=== PATIENT | female | born 1965 | race Caucasian/White ===

== ENCOUNTER 2024-08-06 14:29 | Outpatient (CLI) | payer BC | END 2024-08-06 14:30 | disposition home or self-care (01) | LOC: SCSRAD 14:29 | PROVIDERS: ATTEND Orthopaedic Surgery | DX: M54.50 Low back pain, unspecified (principal); M47.816 Spondylosis without myelopathy or radiculopathy, lumbar region; M47.817 Spondylosis without myelopathy or radiculopathy, lumbosacral region; Z98.890 Other specified postprocedural states | CPT/HCPCS: 72100 ==

== ENCOUNTER 2024-09-13 10:58 | Inpatient (IN) | payer BC ==
[2024-09-13] MEDS ORDERED: Ketorolac Tromethamine 30 MG (1 mL) VIAL ONE (11:14)
[2024-09-13] MEDS ORDERED: Albuterol 2.5 MG (0.5 mL) NEB ONE (11:27)
[2024-09-13] MEDS ORDERED: Albuterol 2.5 MG (3 mL) NEB ONE (11:28)
[2024-09-13 11:34] LABS: Magnesium 3.2 mg/dL (1.6-2.6)
[2024-09-13 11:35] LABS: ALT (SGPT) 15 U/L (8-55); AST (SGOT) 28 U/L (5-34); Acetaminophen Less than 10 mcg/mL (Less than 10); Albumin 3.8 g/dL (3.5-5.0); Alcohol Less than 10.0 mg/dL (Less than 10); Alkaline Phosphatase 103 U/L (40-110); Anion Gap 19 mmol/L (10-20); BUN (Urea Nitrogen) 5 mg/dL (9.8-20.1); Bilirubin, Total 0.7 mg/dL (0.2-1.2); Calc. Creatinine Clearance 0 mL/min (70-130); Carbon Dioxide 23 mmol/L (22-29); Chloride 101 mmol/L (98-107); Estimated GFR 90; Globulin 3.7 g/dL (2.4-3.5); Glucose 289 mg/dL (70-105); Potassium 4.6 mmol/L (3.5-5.1); Protein, Total 7.5 g/dL (6.0-8.3); Salicylate Less than 8.0 mg/dL (Less than 8.0); Sodium 138 mmol/L (136-145)
[2024-09-13 11:40] LABS: Troponin I 0.131 ng/mL (< 0.028)
[2024-09-13 11:41] LABS: #Basophils 0.12 10x3/uL (0.0-0.2); %Basophils 0.9 % (0.0-1.0); %Eosinophils 0.4 % (0.0-10.0); %Lymphocytes 15.4 % (21.0-51.0); %Monocytes 5.1 % (0.0-10.0); Hematocrit 55.5 % (36.0-47.0); Hemoglobin 18.6 g/dL (12.0-16.0); Mean Corpuscular HGB CONC 33.5 g/dL (32.0-36.0); Mean Corpuscular Hemoglobin 32.1 pg (27.0-31.0); Mean Corpuscular Volume 95.7 fL (78.0-98.0); Mean Platelet Volume 9.6 fL (7.4-10.4); Platelet Count 348 10x3/uL (130-400); RBC Distribution Width 12.8 % (11.5-14.5)
[2024-09-13] MEDS ORDERED: Dextrose 50% Abboject 50 ML SYRINGE SLOW IVP PRN (14:04)
[2024-09-13] MEDS ORDERED: Acetaminophen 325 MG TAB PO PRN (14:04)
[2024-09-13] MEDS ORDERED: Dextrose 5% in Water 1,000 ML IV PRN (14:04)
[2024-09-13] MEDS ORDERED: Glucagon 1 MG/ML KIT IM PRN (14:04)
[2024-09-13] MEDS ORDERED: Ondansetron ODT 4 MG TAB PO PRN (14:04)
[2024-09-13] MEDS ORDERED: Acetaminophen 650 MG Suppository PR PRN (14:04)
[2024-09-13] MEDS ORDERED: Insulin Lispro 100 UNIT/ML 10 ML VIAL SC PRN (14:04)
[2024-09-13] MEDS ORDERED: Ondansetron PF 4 MG/2 ML Vial IVP PRN (14:04)
[2024-09-13] MEDS ORDERED: Ipratropium Bromide 2.5 ml Neb NEB PRN (14:04)
[2024-09-13] MEDS ORDERED: Senokot S 8.6-50 MG TAB PO PRN (14:04)
[2024-09-13] MEDS ORDERED: Calcium Carbonate 500 MG ChewTAB PO PRN (14:04)
[2024-09-13] MEDS ORDERED: Sodium Chloride 0.9% 100 ML ONE (14:21)
[2024-09-13] MEDS ORDERED: Piperacillin/Tazobactam 4.5 GM VIAL ONE (14:21)
[2024-09-13 17:36] LABS: Bacteria/HPF None Seen HPF (None Seen); Bilirubin Negative (Negative); Blood, Urine Negative (Negative); CAUTI Indications for Culture Pelvic or flank pain; Clarity Clear (Clear); Glucose, Urine (Dipstick) Normal (Negative); Ketone, Urine Negative (Negative); Leukocyte Negative Leu/uL (Negative); Nitrite Negative (Negative); Protein, Urine (Dipstick) 20 mg/dL (Neg-Trace); RBC/HPF None Seen HPF (0-3); Specific Gravity, Urine 1.006 (1.002-1.036); Squamous Epithelial None Seen HPF (0-3); Urobilinogen Normal mg/dL (Less than 2); WBC/HPF 0-3 HPF (0-3); pH, Urine 6.5 (5.0-9.0)
[2024-09-13] MEDS: Vancomycin (BATCH) 1.75 GM in Premix 1 BAG IVPB SCH (17:37)
[2024-09-13 17:39] LABS: Urine Culture Reflex No No
[2024-09-13 17:43] LABS: Amphetamine Not Detected (NotDetected); Barbiturates Screen Not Detected (NotDetected); Benzodiazepine Screen Not Detected (NotDetected); Cocaine Metabolite Screen Not Detected (NotDetected); Methadone Not Detected (NotDetected); Methamphetamine Not Detected (NotDetected); Opiate Screen Detected (NotDetected); Oxycodone Screen Not Detected (NotDetected); Phencyclidine (PCP) Not Detected (NotDetected); THC/Cannabinoid Screen Detected (NotDetected); Tricyclic Screen Not Detected (NotDetected)
[2024-09-13 18:02] LABS: Troponin I 0.292 ng/mL (< 0.028)
[2024-09-13] MEDS ORDERED: Polyethylene Glycol 3350 17 GM Packet PO PRN (18:21)
[2024-09-13] MEDS: HumuLIN 70/30 100 Unit/ml 10 ml Vial SC SCH (18:24)
[2024-09-13 19:06] VITALS: BMI 33.3
[2024-09-13] MEDS: Ipratropium/Albuterol 3 ML NEB NEB SCH (20:26)
[2024-09-13] MEDS: Morphine ER 30 MG TAB PO SCH (21:06)
[2024-09-13] MEDS: Famotidine 20 MG TAB PO SCH (21:07)
[2024-09-13] MEDS: Piperacillin/Tazobactam 3.375 GM in Sodium Chloride 0.9% 100 ML IVPB SCH (21:07)
[2024-09-13] MEDS: methylPREDNISolone Sod Succ 40 MG VIAL IVP SCH (21:08)
[2024-09-14 00:06] LABS: Troponin I 0.267 ng/mL (< 0.028)
[2024-09-14] MEDS: Vancomycin 1 GM in Premix 1 BAG IVPB SCH (01:33)
[2024-09-14] MEDS: HYDROcodone/Acetaminophen 10/325 mg Tablet PO PRN (01:40)
[2024-09-14 03:15] LABS: #Basophils Less than 0.03 10x3/uL (0.0-0.2); #Eosinophils Less than 0.03 10x3/uL (0.0-0.7); %Lymphocytes 10.2 % (21.0-51.0); %Monocytes 2.6 % (0.0-10.0); %Neutrophils 86.9 % (42.0-75.0); Hematocrit 44.6 % (36.0-47.0); Hemoglobin 14.7 g/dL (12.0-16.0); Mean Corpuscular Hemoglobin 31.7 pg (27.0-31.0); Mean Corpuscular Volume 96.1 fL (78.0-98.0); Mean Platelet Volume 9.8 fL (7.4-10.4); Platelet Count 243 10x3/uL (130-400); RBC Distribution Width 12.9 % (11.5-14.5); Red Blood Cell (RBC) Count 4.64 mill/uL (4.20-5.40)
[2024-09-14 05:25] LABS: Vancomycin, Random 49.1 ug/mL (See Comment)
[2024-09-14 05:28] LABS: Anion Gap 16 mmol/L (10-20); BUN (Urea Nitrogen) 19 mg/dL (9.8-20.1); Calc. Creatinine Clearance 89 mL/min (70-130); Carbon Dioxide 23 mmol/L (22-29); Chloride 99 mmol/L (98-107); Estimated GFR 76; Glucose 286 mg/dL (70-105); Magnesium 2.2 mg/dL (1.6-2.6); Potassium 4.5 mmol/L (3.5-5.1); Sodium 133 mmol/L (136-145)
[2024-09-14] MEDS: Insulin Lispro 100 UNIT/ML 10 ML VIAL SC PRN (05:34)
[2024-09-14] MEDS: Aspirin 81 mg Enteric Coated Tablet PO SCH (09:56)
[2024-09-14] MEDS: Pantoprazole DR 40 MG TAB PO SCH (09:56)
[2024-09-14] MEDS: Atorvastatin Calcium 40 MG TAB PO SCH (09:57)
[2024-09-14] MEDS: Enoxaparin 40 MG (0.4 mL) SYRINGE SC SCH (09:58)
[2024-09-14] MEDS: Benzonatate 100 MG CAP PO PRN (21:22)
[2024-09-15] MEDS: Vancomycin (BATCH) 1.5 GM in Premix 1 BAG IVPB SCH (00:36)
[2024-09-15] MEDS: Senokot S 8.6-50 MG TAB PO SCH (01:44)
[2024-09-15] MEDS: hydrOXYzine 25 MG TAB PO SCH (03:00)
[2024-09-15] MEDS: Midodrine HCl 5 MG TAB PO SCH (03:01)
[2024-09-15 05:09] LABS: Troponin I 0.044 ng/mL (< 0.028)
[2024-09-15] MEDS: Vancomycin 1.5 GM in Sodium Chloride 0.9% 250 ML 300 ML IVPB SCH (05:18)
[2024-09-15] MEDS: Polyethylene Glycol 3350 17 GM Packet PO SCH (09:18)
[2024-09-15] MEDS ORDERED: Insulin Lispro 100 UNIT/ML 10 ML VIAL SC PRN (09:30)
[2024-09-15] MEDS: HumuLIN 70/30 100 Unit/ml 10 ml Vial SC SCH (10:22)
[2024-09-15 16:35] VITALS: BP 104/57; TEMP 97.9
[2024-09-15] MEDS ORDERED: HumuLIN 70/30 100 Unit/ml 10 ml Vial SC SCH (17:00)
[2024-09-15] MEDS: LevoFLOXacin 750 MG TAB PO SCH (18:32)
[2024-09-16] MEDS ORDERED: LevoFLOXacin 750 MG TAB PO SCH (06:00)
== END 2024-09-15 18:30 | disposition home or self-care (01) | DRG 193 ==
LOC: ERS 10:58 → ERHOLD 12:53 → 2NO 17:42
PROVIDERS: ADMIT Internal Medicine; ATTEND Family Medicine
DX: J18.9 Pneumonia, unspecified organism (principal); I21.A1 Myocardial infarction type 2; J96.01 Acute respiratory failure with hypoxia; J44.0 Chronic obstructive pulmonary disease with (acute) lower respiratory infection; J44.1 Chronic obstructive pulmonary disease with (acute) exacerbation; I50.42 Chronic combined systolic (congestive) and diastolic (congestive) heart failure; I42.8 Other cardiomyopathies; E11.65 Type 2 diabetes mellitus with hyperglycemia; I11.0 Hypertensive heart disease with heart failure; G89.29 Other chronic pain; M54.9 Dorsalgia, unspecified; E78.5 Hyperlipidemia, unspecified; Z88.1 Allergy status to other antibiotic agents; Z88.0 Allergy status to penicillin; Z88.8 Allergy status to other drugs, medicaments and biological substances; Z87.891 Personal history of nicotine dependence
CPT/HCPCS: 36415; 36416; 71045; 80048; 80053; 80202; 80306; 80307; 81001; 83605; 83735; 83880; 84484; 85025; 87040; 87077; 87081; 87086; 87149; 93005; 94640; J1650; J1815; J1885; J2543; J2919; J3370; J3370-JW; J7050; J7611; J7620